=== PATIENT | female | born 1995 | race Caucasian/White ===

== ENCOUNTER 2023-07-31 14:41 | Emergency (ER) | payer MEDICAID ==
--- NOTE | 2023-07-31 15:14 | ED ---
General Adult HPI - General Source: patient, RN notes reviewed Mode of arrival: ambulatory Limitations: no limitations <Celso Elizabeth - Last Filed: 07/31/23 15:12> <Johana Shepherd - Last Filed: 07/31/23 22:03> - General Stated complaint: 6 weeks preg,poss Ecotopic preg Time Seen by Provider: 07/31/23 15:13 - History of Present Illness Initial comments: 28-year-old female sent emergency Department chief complaint of abdominal discomfort and . Patient is A0 states started him some abdominal cramping. Patient is advised to come emergency department secondary to unable to find gestational sac. Patient denies any dysuria, hematuria. (Celso Elizabeth) Residual female presents to the emergency department with some lower abdominal cramping. States that she took a test test and it was positive. She went to a clinic today where they completed a transabdominal ultrasound and did not see an intrauterine . They told her that she probably had a ectopic and needed to go to the ER. Patient denies any vaginal bleeding. No discharge. No dysuria, hematuria or difficulty voiding. Denies any changes in her bowel movements. Last menstrual cycle was June 15 . No other alleviating, precipitating or modifying factors (Johana Shepherd) - Related Data Previous Rx's Medication Instructions Recorded Cephalexin [Keflex] 500 mg PO Q12HR 7 Days #14 cap 07/31/23 Vit No.179/Iron/Folic 1 each PO DAILY #30 tab 07/31/23 [ Tablet] Allergies Allergy/AdvReac Type Severity Reaction Status Date / Time No Known Allergies Allergy Verified 07/31/23 15:53 Review of Systems ROS Other: All systems not noted in ROS Statement are negative. <Celso Elizabeth - Last Filed: 07/31/23 15:12> ROS Other: All systems not noted in ROS Statement are negative. <Johana Shepherd - Last Filed: 07/31/23 22:03> ROS Statement: Those systems with pertinent positive or pertinent negative responses have been documented in the HPI. General Exam <Celso Elizabeth - Last Filed: 07/31/23 15:12> - General Exam Comments Initial Comments: Visual Physical Exam Vital signs reviewed General: Well-appearing, nontoxic, no acute distress. Head: Normocephalic, atraumatic Eyes: PERRLA, EOMI ENT: Airway patent Chest: Nonlabored breathing Skin: No visual rash, normal skin tone Neuro: Alert and oriented 3 Musculoskeletal: No gross abnormalities (Celso Elizabeth) Course Vital Signs 07/31/23 07/31/23 15:53 18:43 Temperature 98.9 F Pulse Rate 86 75 Respiratory 16 18 Rate Blood Pressure 133/80 142/88 O2 Sat by Pulse 99 87 L Oximetry Medical Decision Making <Celso Elizabeth - Last Filed: 07/31/23 15:12> - Lab Data Result diagrams: 07/31/23 15:43 07/31/23 15:43 <Johana Shepherd - Last Filed: 07/31/23 22:03> - Medical Decision Making I completed the quick note portion of this chart signed Celso Elizabeth PA-C (Celso Elizabeth) Was pt. sent in by a medical professional or institution ([facility], WEIGHT INSPECTOR, urgent care, hospital, or [place] [facility] facility...) When possible be specific @ -No Did you speak to anyone other than the patient for history (EMS, parent, family, police, friend...)? What history was obtained from this source @ -No Did you review nursing and triage notes (agree or disagree)? Why? @ -I reviewed and agree with nursing and triage notes Were old charts reviewed (outside hosp., previous admission, EMS record, old EKG, old radiological studies, urgent care reports/EKG's, [place] [facility] facility records)? Report findings @ -No old charts were reviewed Differential Diagnosis (chest pain, altered mental status, abdominal pain women, abdominal pain men, vaginal bleeding, weakness, fever, dyspnea, syncope, headache, dizziness, GI bleed, back pain, seizure, CVA, palpatations, mental health, musculoskeletal)? @ -not applicable EKG interpreted by me (3pts min.). @ -As above X-rays interpreted by me (1pt min.). @ -None done CT interpreted by me (1pt min.). @ -None done U/S interpreted by me (1pt. min.). @ -None done What testing was considered but not performed or refused? (CT, X-rays, U/S, labs)? Why? @ -None What meds were considered but not given or refused? Why? @ -None Did you discuss the management of the patient with other professionals (professionals i.e. , PA, WEIGHT INSPECTOR, lab, RT, psych nurse, dialysis social worker, geological technician, teacher, staff antisubmarine officer, onsite case manager)? Give summary @ -No Was smoking cessation discussed for >3mins.? @ -No Was critical care preformed (if so, how long)? @ -No Were there social determinants of health that impacted care today? How? (Homelessness, low income, unemployed, alcoholism, drug addiction, transportation, low edu. Level, literacy, decrease access to med. care, penitentiary, rehab)? @ -No Was there de-escalation of care discussed even if they declined (Discuss DNR or withdrawal of care, Hospice)? DNR status @ -No What co-morbidities impacted this encounter? (DM, HTN, Smoking, COPD, CAD, Cancer, CVA, ARF, Chemo, Hep., AIDS, mental health diagnosis, sleep apnea, morbid obesity)? @ -None Was patient admitted / discharged? Hospital course, mention meds given and route, prescriptions, significant lab abnormalities, going to OR and other pertinent info. @ -Upon arrival patient was placed into hallway 21. Thorough history and physical exam was performed. Laboratory studies were conducted. Ultrasound is performed. There does appear to be a cystic structure inside the uterus however patient's beta Quant is only 2000. Discussed with the patient that she needs to have repeat blood work done in 48 hours. This would be on Thursday. The patient will need to come to the ER to have her beta hCG level drawn. I will provide her with a prescription. Ultrasound will have to be repeated within 1 week to ensure that the is progressing as expected. The patient has any new or worsening symptoms or develops vaginal bleeding she needs to return to the emergency room. Patient understood this and was discharged in stable condition Undiagnosed new problem with uncertain prognosis? @ -No Drug Therapy requiring intensive monitoring for toxicity (Heparin, Nitro, Insulin, Cardizem)? @ -No Were any procedures done? @ -No Diagnosis/symptom? @ -default Acute, or Chronic, or Acute on Chronic? @ -default Uncomplicated (without systemic symptoms) or Complicated (systemic symptoms)? @ -default Side effects of treatment? @ -No Exacerbation, Progression, or Severe Exacerbation? @ -No Poses a threat to life or bodily function? How? (Chest pain, [place], [place], pneumonia, PE, COPD, DKA, ARF, appy, cholecystitis, CVA, Diverticulitis, Homicidal, Suicidal, threat to staff... and all critical care pts) @ -No (Johana Shepherd) - Lab Data Lab Results 07/31/23 07/31/23 07/31/23 Range/Units 15:43 15:43 15:43 WBC 5.8 (3.8-10.6) k/uL RBC 4.53 (3.80-5.40) m/uL Hgb 13.2 (11.4-16.0) gm/dL Hct 40.2 (34.0-46.0) % MCV 88.9 (80.0-100.0) fL MCH 29.2 (25.0-35.0) pg MCHC 32.8 (31.0-37.0) g/dL RDW 12.5 (11.5-15.5) % Plt Count 206 (150-450) k/uL MPV 10.0 Neutrophils % 70 % Lymphocytes % 22 % Monocytes % 6 % Eosinophils % 1 % Basophils % 0 % Neutrophils # 4.1 (1.3-7.7) k/uL Lymphocytes # 1.3 (1.0-4.8) k/uL Monocytes # 0.3 (0-1.0) k/uL Eosinophils # 0.0 (0-0.7) k/uL Basophils # 0.0 (0-0.2) k/uL Sodium 137 (137-145) mmol/L Potassium 4.3 (3.5-5.1) mmol/L Chloride 105 (98-107) mmol/L Carbon Dioxide 20 L (22-30) mmol/L Anion Gap 12 mmol/L BUN 8 (7-17) mg/dL Creatinine 0.63 (0.52-1.04) mg/dL Est GFR (CKD-EPI)AfAm >90 (>60 ml/min/1.73 sqM) Est GFR (CKD-EPI)NonAf >90 (>60 ml/min/1.73 sqM) Glucose 92 (74-99) mg/dL Calcium 9.9 (8.4-10.2) mg/dL Total Bilirubin 0.5 (0.2-1.3) mg/dL AST 39 H (14-36) U/L ALT 34 (4-34) U/L Alkaline Phosphatase 55 (38-126) U/L Total Protein 7.5 (6.3-8.2) g/dL Albumin 4.6 (3.5-5.0) g/dL HCG, Qual Detected HCG, Quant mIU/mL Urine Color Light Yellow Urine Appearance Cloudy H (Clear) Urine pH 6.0 (5.0-8.0) Ur Specific [place] 1.020 (1.001-1.035) Urine Protein Negative (Negative) Urine Glucose (UA) Negative (Negative) Urine Ketones 1+ H (Negative) Urine Blood Negative (Negative) Urine Nitrite Negative (Negative) Urine Bilirubin Negative (Negative) Urine Urobilinogen <2.0 (<2.0) mg/dL Ur Leukocyte Esterase Large H (Negative) Urine RBC 1 (0-5) /hpf Urine WBC 7 H (0-5) /hpf Ur Squamous Epith Cells 8 H (0-4) /hpf Urine Bacteria Occasional H (None) /hpf Urine Mucus Occasional H (None) /hpf 07/31/23 Range/Units 18:56 WBC (3.8-10.6) k/uL RBC (3.80-5.40) m/uL Hgb (11.4-16.0) gm/dL Hct (34.0-46.0) % MCV (80.0-100.0) fL MCH (25.0-35.0) pg MCHC (31.0-37.0) g/dL RDW (11.5-15.5) % Plt Count (150-450) k/uL MPV Neutrophils % % Lymphocytes % % Monocytes % % Eosinophils % % Basophils % % Neutrophils # (1.3-7.7) k/uL Lymphocytes # (1.0-4.8) k/uL Monocytes # (0-1.0) k/uL Eosinophils # (0-0.7) k/uL Basophils # (0-0.2) k/uL Sodium (137-145) mmol/L Potassium (3.5-5.1) mmol/L Chloride (98-107) mmol/L Carbon Dioxide (22-30) mmol/L Anion Gap mmol/L BUN (7-17) mg/dL Creatinine (0.52-1.04) mg/dL Est GFR (CKD-EPI)AfAm (>60 ml/min/1.73 sqM) Est GFR (CKD-EPI)NonAf (>60 ml/min/1.73 sqM) Glucose (74-99) mg/dL Calcium (8.4-10.2) mg/dL Total Bilirubin (0.2-1.3) mg/dL AST (14-36) U/L ALT (4-34) U/L Alkaline Phosphatase (38-126) U/L Total Protein (6.3-8.2) g/dL Albumin (3.5-5.0) g/dL HCG, Qual HCG, Quant 2092.2 mIU/mL Urine Color Urine Appearance (Clear) Urine pH (5.0-8.0) Ur Specific [place] (1.001-1.035) Urine Protein (Negative) Urine Glucose (UA) (Negative) Urine Ketones (Negative) Urine Blood (Negative) Urine Nitrite (Negative) Urine Bilirubin (Negative) Urine Urobilinogen (<2.0) mg/dL Ur Leukocyte Esterase (Negative) Urine RBC (0-5) /hpf Urine WBC (0-5) /hpf Ur Squamous Epith Cells (0-4) /hpf Urine Bacteria (None) /hpf Urine Mucus (None) /hpf Disposition <Celso Elizabeth - Last Filed: 07/31/23 15:12> Is patient prescribed a controlled substance at d/c from ED?: No Time of Disposition: 20:17 <Johana Shepherd - Last Filed: 07/31/23 22:03> Clinical Impression: Pelvic cramping, of unknown anatomic location Disposition: HOME SELF-CARE Condition: Stable Instructions (If sedation given, give patient instructions): (ED) Additional Instructions: You must return to the emergency department on Thursday to have your blood work redrawn. You need an ultrasound repeated within 1 week to ensure that your is progressing as expected. Please return to the emergency room for any new or worsening symptoms Prescriptions: Cephalexin [Keflex] 500 mg PO Q12HR 7 Days #14 cap Vit No.179/Iron/Folic [ Tablet] 1 each PO DAILY #30 tab Referrals: None,Stated [Primary Care Provider] - 1-2 days Marcelo Johnson MD [STAFF PHYSICIAN] - 1-2 days
[2023-07-31 16:19] VITALS: TEMP 98.9
[2023-07-31 16:53] LABS: Appearance,Urine Cloudy (Clear); Bacteria,Urine Occasional /hpf; Bilirubin,Urine Negative (Negative); Blood,Urine Negative (Negative); Color,Urine Light Yellow; Glucose,Urine (UA) Negative (Negative); Ketones,Urine 1+ (Negative); Leukocyte Esterase,Urine Large (Negative); Mucus,Urine Occasional /hpf; Nitrite,Urine Negative (Negative); Protein,Urine Negative (Negative); RBC,Urine 1 /hpf (0-5); Squamous Epithelial Cell,Urine 8 /hpf (0-4); Urobilinogen,Urine <2.0 mg/dL (<2.0); WBC,Urine 7 /hpf (0-5)
[2023-07-31 16:55] LABS: Basophils % (A) 0 %; Eosinophils % (A) 1 %; HCT 40.2 % (34.0-46.0); HGB 13.2 gm/dL (11.4-16.0); Lymphocytes # (A) 1.3 k/uL (1.0-4.8); Lymphocytes % (A) 22 %; MCH 29.2 pg (25.0-35.0); MCHC 32.8 g/dL (31.0-37.0); MCV 88.9 fL (80.0-100.0); Monocytes # (A) 0.3 k/uL (0-1.0); Monocytes % (A) 6 %; Neutrophils # (A) 4.1 k/uL (1.3-7.7); Neutrophils % (A) 70 %; Platelet Count 206 k/uL (150-450); RBC 4.53 m/uL (3.80-5.40); RDW 12.5 % (11.5-15.5); WBC 5.8 k/uL (3.8-10.6)
[2023-07-31 17:07] LABS: HCG,Qualitative Serum Detected
[2023-07-31 17:13] LABS: African American GFR (CKD) >90 (>60 ml/min/1.73 sqM); Albumin 4.6 g/dL (3.5-5.0); Blood Urea Nitrogen 8 mg/dL (7-17); Calcium 9.9 mg/dL (8.4-10.2); Carbon Dioxide 20 mmol/L (22-30); Non-African American GFR(CKD) >90 (>60 ml/min/1.73 sqM); Potassium 4.3 mmol/L (3.5-5.1); Sodium 137 mmol/L (137-145); Total Bilirubin 0.5 mg/dL (0.2-1.3); Total Protein 7.5 g/dL (6.3-8.2)
[2023-07-31 17:18] LABS: ALT 34 U/L (4-34); AST 39 U/L (14-36); Alkaline Phosphatase 55 U/L (38-126); Anion Gap 12 mmol/L; Chloride 105 mmol/L (98-107); Glucose 92 mg/dL (74-99)
--- NOTE | 2023-07-31 18:28 | US ---
EXAMINATION TYPE: Transabdominal DATE OF EXAM: 07/31/2023 6:05 PM COMPARISON: NONE CLINICAL INDICATION: Female, 28 years old with history of pain; LMP 06/15/2023, patient took Plan B p ill 1 week later, since then she tested positive for , had no cycle and mild cramping EXAM PERFORMED: OBTA/OBTV EXAM MEASUREMENTS: GESTATIONAL AGE / DATING Physician Established: Not yet established Dates by LMP: (6 weeks/4 days) EDC: 03/21/2024 Dates by First Scan: No previous this is first scan Dates by Current Scan for: (5 weeks/0 days) EDC: 04/01/2024 MATERNAL ANATOMY Uterus: 8.9 x 5.0 x 4.4cm Right Ovary: 3.7 x 2.4 x 3.2cm Left Ovary: 3.1 x 1.7 x 2.2cm Post CDS / Adnexa: wnl Presence of free fluid: no Presence of corpus luteal cyst: yes - rt ovary = 2.3 x 1.9 c 2.0 Presence of subchorionic bleed: no GESTATION / SURVEY CRL: too early MSD: 0.5cm (5 weeks/0 days) - within fundus of endometrium Date of LMP: 06/15/2023 Beta HcG (if available): pending IMPRESSION: Small anechoic intrauterine cystic structure without evidence for yolk sac or pole at this time . This is thought to represent an early gestational sac with a positive beta hCG, however ectopic pre gnancy and abnormal intrauterine cannot be ruled out based on this exam alone. Follow-up [facility] pelvic ultrasound in 7-10 days and serial beta-hCG studies are recommended to en sure further deve lopment of the fetus.
[2023-07-31 19:13] VITALS: BP 142/88; PULSE 75; RESP 18
== END 2023-07-31 20:29 | disposition home or self-care (01) ==
LOC: EC 14:41
DX: O26.891 Other specified pregnancy related conditions, first trimester (principal); R10.2 Pelvic and perineal pain; Z3A.01 Less than 8 weeks gestation of pregnancy
CPT/HCPCS: 36415; 76801; 76817; 80053; 81001; 84702; 84703; 85025; 99284